=== PATIENT | female | born 1990 | race Caucasian/White ===

== ENCOUNTER 2016-04-23 16:01 | Emergency (ER) | payer BC ==
[~2016-04-23] VITALS: Ht 180.3 cm; Wt 90.9 kg
[~2016-04-23 16:01] MED LIST: BCP TD; NO HOME MEDICATIONS
[2016-04-23 16:06] VITALS: BP 129/79; TEMP 97.5
[2016-04-23] MEDS ORDERED: ZOFRAN 4MG T4 MG/TAB PO (17:37)
[2016-04-23 17:48] VITALS: PULSE 90
== END 2016-04-23 17:48 | disposition home or self-care (01) ==
LOC: COL.ER 16:01
DX: F10.120 Alcohol abuse with intoxication, uncomplicated (principal); Y90.9 Presence of alcohol in blood, level not specified

== ENCOUNTER 2017-06-20 01:08 | Emergency (ER) | payer SELFPAY ==
[~2017-06-20 01:08] MED LIST changes: +ZOFRAN 4MG T4 MG/TAB PO
[2017-06-20 01:18] VITALS: TEMP 96.9
[2017-06-20 02:50] VITALS: BP 118/90; PULSE 88
== END 2017-06-20 02:50 | disposition home or self-care (01) ==
LOC: COL.ER 01:08
DX: F10.129 Alcohol abuse with intoxication, unspecified (principal); R11.2 Nausea with vomiting, unspecified; Y90.6 Blood alcohol level of 120-199 mg/100 ml
CPT/HCPCS: J2405; J2550; J7030